=== PATIENT | female | born 1975 | race American Indian/Alaskan Native ===

== ENCOUNTER 2018-01-31 23:49 | Emergency (ER) | payer OTHER ==
[2018-02-01] MEDS ORDERED: TYLENOL PO ONE (01:35)
[2018-02-01] MEDS ORDERED: TYLENOL ONE (01:35)
[2018-02-01] MEDS ORDERED: AUGMENTIN 875 MG ONE (03:11)
[2018-02-01] MEDS ORDERED: TYLENOL #3 ONE (03:12)
[2018-02-01] MEDS ORDERED: AUGMENTIN 875 MG PO ONE (03:23)
[2018-02-01] MEDS ORDERED: TYLENOL #3 PO ONE (03:23)
--- NOTE | 2018-02-01 03:42 | Emergency Department Report ---
HPI - General Chief Complaint: Dental/Oral Time Seen by Provider: 02/01/18 03:28 - HPI HPI: The patient is a 42-year-old female who presents to ED complaining of 7/10 pain and swelling in the left side of her mouth x 3 days . Patient states that the she's had bad tooth for the past 3 months on insurance to kick in so she can go to the dentist but in the past 3 days she says some swelling and pain. The pain is exacerbated by eating and opening of the mouth. Patient states the pain is alleviated initially with pain medication but comes back. Patient states that it radiates towards ear. Patient describes a as a throbbing, pressure-like sensation. Patient states otherwise well and has no other complaints. Patient has had no fevers and no chills. No chest pain, no shortness of breath. No abdominal pain. No shortness of breath or recent trauma to the face. ED Past Medical Hx - Past Medical History Previous Medical History?: No - Surgical History Past Surgical History?: Yes Additional Surgical History: tonselectomy, gallbladder removed - Social History Smoking Status: Never Smoker Substance Use Type: None - Medications Home Medications: Home Medications Medication Instructions Recorded Confirmed Last Taken Type Acetaminophen/Codeine [Tylenol 1 tab PO Q6H PRN #12 tab 02/01/18 Unknown Rx /Codeine # 3 tab] Amoxicillin/K Clav Tab [Augmentin 1 tab PO Q12HR #20 tab 02/01/18 Unknown Rx 875 mg] Ibuprofen [Motrin] 800 mg PO Q8HR PRN #30 tablet 02/01/18 Unknown Rx ED Review of Systems ROS: Stated complaint: TOOTHACHE,MOUTH SWOLLEN0 Other details as noted in HPI Constitutional: denies: chills, fever Eyes: denies: eye pain, eye discharge, vision change ENT: dental pain. denies: ear pain, throat pain Respiratory: denies: cough, shortness of breath, wheezing Cardiovascular: denies: chest pain, palpitations Endocrine: no symptoms reported Gastrointestinal: denies: abdominal pain, nausea, diarrhea Genitourinary: denies: urgency, dysuria, discharge Musculoskeletal: denies: back pain, joint swelling, arthralgia Skin: denies: rash, lesions Neurological: denies: headache, weakness, paresthesias Psychiatric: denies: anxiety, depression Hematological/Lymphatic: denies: easy bleeding, easy bruising Physical Exam - Physical Exam Vital Signs: Vital Signs 02/01/18 02/01/18 01:30 03:28 Temperature 99.2 F Pulse Rate 95 H Respiratory 19 18 Rate Blood Pressure 181/104 O2 Sat by Pulse 97 Oximetry Physical Exam: GENERAL: Alert and oriented x3, no apparent distress, Normal Gait, atraumatic. EARS: symetrical, atraumatic, non tender, ear canal clear and moderate cerumen, tympanic membrance non inflamed. gross auditory nml bilaterally. NOSE: Nose symetrical, Nontender,Nares appeared normal. MOUTH:Mouth is well hydrated and without lesions. Tonsils nonerythematous or swollen, Uvula midline, Tongue not elevated. Mucous membranes are moist. Posterior pharynx clear, no exudate or lesions. Patent airways. Left lower jaw swollen from gingival swelling and infection, tenderness to tooth #20 and 21, partially missing tooth 19. affected teeth look decayed. No TMJ tenderness or clicking NECK: Supple. Non edematous, No lymphadenopathy or thyromegaly. No C-spine tenderness LUNGS: Symetrical with respiration, No wheezing, no rales or crackles, CTAB. HEART: S1, S2 present, regular rate and rhythm without murmur, no rubs, no gallops. Non tender to palpation SKIN: Warm and dry, No lesions, No ulceration or induration present. ED Course Vital Signs 02/01/18 02/01/18 01:30 03:28 Temperature 99.2 F Pulse Rate 95 H Respiratory 19 18 Rate Blood Pressure 181/104 O2 Sat by Pulse 97 Oximetry ED Medical Decision Making - Medical Decision Making 42-year-old female who presents with left-sided Facial pain secondary to odontogenic caries ED course: Patient received 1000 mg of amoxicillin, 2 tablets of Tylenol No. 3. Odontogenic infection versus ear infection. Based upon history and physical examination, pain is a result of an infection of tooth number _19,20,21 and that the pain Pt feels on the left side of his face and towards the ear is referred pain from this infectious process. Pt has no evidence of acute impending airway compromise. At this point, patient will be discharged home on some antibiotics and pain trial, she will do well with an outpatient course of antibiotics. Follow up with the Dental Clinic as referred Vital signs are normal patient is in no acute distress. Pt had an effect uneventful ED stay Critical care attestation.: If time is entered above; I have spent that time in minutes in the direct care of this critically ill patient, excluding procedure time. ED Disposition Clinical Impression: Dental caries, Dental abscess Disposition: TO HOME OR SELFCARE Is pt being admited?: No Does the pt Need Aspirin: No Condition: Stable Instructions: Dental Abscess (ED), Dental Caries (ED), Toothache (ED) Additional Instructions: Make sure to follow up with the dentist as discussed. Take all your medications as you've been prescribed. If you have any worsening symptoms or develop new symptoms please return to ED immediately. Prescriptions: Acetaminophen/Codeine [Tylenol /Codeine # 3 tab] 1 tab PO Q6H PRN #12 tab PRN Reason: Pain Amoxicillin/K Clav Tab [Augmentin 875 mg] 1 tab PO Q12HR #20 tab Ibuprofen [Motrin] 800 mg PO Q8HR PRN #30 tablet PRN Reason: Pain Referrals: GEORGE TEE MD [Primary Care Provider] - 3-5 Days [facility] [Outside] - 3-5 Days [facility] [Outside] - 3-5 Days [facility] [Outside] - 3-5 Days Forms: Accompanied Note, Work/School Release Form(ED) Time of Disposition: 03:42
[2018-02-01 04:20] VITALS: BP 173/97
== END 2018-02-01 04:20 | disposition home or self-care (01) ==
LOC: ED 23:49
DX: K04.7 Periapical abscess without sinus (principal)
CPT/HCPCS: 99282

== ENCOUNTER 2018-04-30 08:09 | Emergency (ER) | payer OTHER ==
[2018-04-30] MEDS ORDERED: XYLOCAINE 1% MPF 5 mL INFILTRATI ONE (10:17)
[2018-04-30] MEDS ORDERED: MOTRIN PO ONE (10:17)
[2018-04-30] MEDS ORDERED: NORCO 7.5/325 PO ONE (10:17)
--- NOTE | 2018-04-30 10:17 | Emergency Department Report ---
Blank Doc - Documentation Documentation: Patient is a 43-year-old black female who developed an abscess in the left medial thigh. Patient states is progressively worsened despite being on Keflex. Patient was seen at the emergency department was constant but was told that it wasn't large enough to do an I&D. Patient is here for treatment. Patient removed to a treatment room for I&D of this abscess.
--- NOTE | 2018-04-30 10:33 | Emergency Department Report ---
Abscess Boil HPI - HPI Chief Complaint: Skin/Abscess/Foreign Body Stated Complaint: BOIL ON THIGH Time Seen by Provider: 04/30/18 10:01 Duration: 1 Week Location: Lower Extremity (left medial thigh) Severity: Moderate History: Yes Pain, Yes Previous History (abscess to axilla), Yes Insect Bite ( she think it may possibly be infected by), No Fever, No Purulent Drainage, No Numbness, No Foreign Body HPI: This is a 43-year-old -[place] female who presents with a abscess in the left medial thigh for 1 week. Patient reports being seen in the emergency room while on vacation in [place]. She has been taken Keflex with no improvement of symptoms. She was told that it wasn't large enough to do an I &D. Patient reports abscess was dime size on presentation at original emergency room in [place] but progressively got worse. Denies drainage, fever , and numbness or tingling. Home Medications: Previous Rx's Medication Instructions Recorded Last Taken Type Acetaminophen/Codeine [Tylenol 1 tab PO Q6H PRN #12 tab 02/01/18 Unknown Rx /Codeine # 3 tab] Amoxicillin/K Clav Tab [Augmentin 1 tab PO Q12HR #20 tab 02/01/18 Unknown Rx 875 mg] Ibuprofen [Motrin] 800 mg PO Q8HR PRN #30 tablet 02/01/18 Unknown Rx Cephalexin [Keflex] 500 mg PO Q8HR 4 Days #12 cap 04/30/18 Unknown Rx Ibuprofen [Motrin 800 MG tab] 800 mg PO Q8HR PRN #15 tablet 04/30/18 Unknown Rx traMADol [Ultram 50 MG tab] 50 mg PO Q6HR PRN #15 tablet 04/30/18 Unknown Rx Allergies/Adverse Reactions: Allergies Allergy/AdvReac Type Severity Reaction Status Date / Time No Known Allergies Allergy Verified 02/01/18 01:51 ED Review of Systems ROS: Stated complaint: BOIL ON THIGH Other details as noted in HPI Constitutional: denies: chills, fever Respiratory: denies: cough, shortness of breath, wheezing Cardiovascular: denies: chest pain, palpitations Gastrointestinal: denies: abdominal pain, nausea, diarrhea Skin: lesions (abscess to left medial thigh). denies: rash Neurological: denies: headache, weakness, numbness, paresthesias Psychiatric: denies: anxiety, depression ED Past Medical Hx - Past Medical History Previous Medical History?: Yes Additional medical history: Boil - Surgical History Past Surgical History?: Yes Additional Surgical History: tonselectomy, gallbladder removed - Social History Smoking Status: Never Smoker Substance Use Type: Alcohol, Prescribed - Medications Home Medications: Home Medications Medication Instructions Recorded Confirmed Last Taken Type Acetaminophen/Codeine [Tylenol 1 tab PO Q6H PRN #12 tab 02/01/18 Unknown Rx /Codeine # 3 tab] Amoxicillin/K Clav Tab [Augmentin 1 tab PO Q12HR #20 tab 02/01/18 Unknown Rx 875 mg] Ibuprofen [Motrin] 800 mg PO Q8HR PRN #30 tablet 02/01/18 Unknown Rx Cephalexin [Keflex] 500 mg PO Q8HR 4 Days #12 cap 04/30/18 Unknown Rx Ibuprofen [Motrin 800 MG tab] 800 mg PO Q8HR PRN #15 tablet 04/30/18 Unknown Rx traMADol [Ultram 50 MG tab] 50 mg PO Q6HR PRN #15 tablet 04/30/18 Unknown Rx ED Abscess Boil Physical Exam - Exam General: Vital signs noted. No distress. Alert and acting appropriately. Front/Back of Body, Lg (Color): 1 - 5 cm fluctuant nodule to the left medial thigh, tenderness, purulent drainage, erythema, no surrounding cellulitis. Size: 5 cm Exam: Yes Tenderness, Yes Fluctuance, Yes Normal Neurologic Exam, Yes Normal Circulation, No Surrounding Cellulites/Erythema, No Lymphangitis, No Crepitation , No Heart Murmur I & D Note - I & D Note I & D Note: The area was prepared and draped in the usual, sterile manner. The site was anesthetized with 2% lidocaine without epinephrine. A linear incision along the local skin lines was made and the purulent material expressed. The abcess was explored thoroughly and sequestered pockets were opened. Bleeding was minimal. Packing: idodoform. Followup: The patient tolerated the procedure well without complications. Standard post-procedure care was explained and return precautions are given. ED Course Vital Signs 04/30/18 08:21 Temperature 98.7 F Pulse Rate 85 Respiratory 16 Rate Blood Pressure 159/90 O2 Sat by Pulse 98 Oximetry Critical care attestation.: If time is entered above; I have spent that time in minutes in the direct care of this critically ill patient, excluding procedure time. ED Medical Decision Making - Medical Decision Making This is a 43 y.o. female that presents with a painful abscess to left medial thigh for 1 week. History of prior abscess to bilateral axilla. Patient is stable and examined by me and Dr. Manrique. Physical assessment of 5 cm fluctuance nodule to left medial thigh. No acute signs of distress noted. Given norco 7.5 mg po once in ER. I&D refer to note. Discussed plan to continue Keflex and start tramadal and ibuprofen with patient. Educated patient on follow up plan to have packing removed and wound reassessed in 2-3 days. Patient agrees to ED plan of care. Discharged home and follow up with PCP in 2- 3 days. ED Disposition Clinical Impression: Abscess of left thigh Disposition: TO HOME OR SELFCARE Is pt being admited?: No Does the pt Need Aspirin: No Condition: Stable Instructions: Abscess (ED), Abscess Incision and Drainage (ED) Additional Instructions: Keep packing in place for 2-3 days. Return to ER or f/u with PCP to have packing removed and wound reassessed. Complete full round of keflex antibiotic as prescribed from prior ER and new prescription as discussed. Follow up with PCP or ER in 2-3 days. Return to ER if foul smelling discharge, swelling, or severe pain to wound. Prescriptions: Cephalexin [Keflex] 500 mg PO Q8HR 4 Days #12 cap Ibuprofen [Motrin 800 MG tab] 800 mg PO Q8HR PRN #15 tablet PRN Reason: Pain, Moderate (4-6) traMADol [Ultram 50 MG tab] 50 mg PO Q6HR PRN #15 tablet PRN Reason: Pain , Severe (7-10) Referrals: MORTEZA GARDUNO MD [Primary Care Provider] - 3-5 Days Time of Disposition: 11:15 Print Language: INDONESIAN
[2018-04-30 11:32] VITALS: BP 136/76
== END 2018-04-30 11:29 | disposition home or self-care (01) ==
LOC: ED 08:09
DX: L02.416 Cutaneous abscess of left lower limb (principal); Z90.89 Acquired absence of other organs